=== PATIENT | female | born 1995 | race African-American/Black ===

== ENCOUNTER 2017-02-02 15:32 | Emergency (ER) | payer OTHER ==
[~2017-02-02] VITALS: Ht 165.1 cm; Wt 108.9 kg
[2017-02-02] MEDS ORDERED: NKM (15:37)
[2017-02-02] MEDS ORDERED: Tetanus/Diptheria/Pertussis Vaccine 0.5ml Syr IM ONE (16:00)
--- NOTE | 2017-02-02 16:01 | Emergency Room Report ---
History of Present Illness General Chief Complaint: Head, Face, Neck Trauma Source: Patient Present Illness HPI 21-year-old female no significant past medical history presenting with fall. Patient [place] the park, [place], landed on rocks, sustained laceration to right forehead, LOC for a few seconds, patient can recall event. Patient had an episode of nausea and vomiting prior to coming to the emergency room. Tetanus is not up-to-date. Denies injury to any other part of body aside from head Allergies: Coded Allergies: COCONUT (Verified Allergy, Unknown, 02/02/17) Patient History Past Medical History: see triage record Past Surgical History: none Pertinent Family History: none Last Menstrual Period: Two weeks ago Now: No Reviewed Nursing Documentation: PMH: Agreed, PSxH: Agreed Nursing Documentation-PMH Past Medical History: No Stated History Review of Systems All Other Systems: negative except mentioned in HPI Physical Exam Vital Signs Date Time Temp Pulse Resp B/P (MAP) Pulse Ox O2 Delivery O2 Flow Rate FiO2 02/02/17 15:33 98.4 90 18 133/87 100 Room Air Sp02 EP Interpretation: reviewed, normal General Appearance: alert, GCS 15, non-toxic, mild distress Head: normocephalic - Right forehead with circular 2 cm deep laceration, no active bleeding, surrounding nonbloody hematoma Eyes: bilateral eye normal inspection, bilateral eye PERRL, bilateral eye EOMI ENT: normal ENT inspection, normal pharynx, normal voice, moist mucus membranes Neck: normal inspection, full range of motion, supple, no bony tend Respiratory: normal inspection, lungs clear, normal breath sounds, no respiratory distress, no retraction, no wheezing, speaking full sentences, chest symmetrical Cardiovascular #1: normal inspection, regular rate, rhythm, normal capillary refill Cardiovascular #2: 2+ radial (R), 2+ radial (L) Gastrointestinal: normal inspection, non tender, soft, non-distended, no guarding Musculoskeletal: normal inspection, back normal, normal range of motion, non- tender Neurologic: normal inspection, alert, oriented x3, responsive, motor strength/ tone normal, sensory intact, normal gait, speech normal Psychiatric: normal inspection, judgement/insight normal, memory normal Skin: normal inspection, normal color, no rash, warm/dry, well hydrated, normal turgor Medical Decision Making Diagnostic Impression: Primary Impression: Forehead laceration Additional Impression: Closed head injury ER Course 21-year-old female, fell, LOC, nausea vomiting DDX: Laceration, rule out intracranial hemorrhage Plan: CT head Laceration repair Tetanus ER course: Laceration repaired, bacitracin with sterile dressing applied. Tdap given. Disposition: Patient will be discharged home. Strict return precautions discussed with patient such as fever, chills, increasing bleeding to site, purulent drainage, rapid swelling or redness to area. Patient verbalizes understanding. Patient sis informed of inevitable scar that will result from laceration despite repair. Pt instructed to avoid sun exposure to decrease the appearance of scar. Patient instructed to return to ED or their primary care doctor in 5-7 days for removal of sutures. Patient agrees with plan. Please note that this Emergency Department Report was dictated using [employer] technology software, occasionally this can lead to erroneous entry secondary to interpretation by the dictation equipment CT/MRI/US Diagnostic Results CT/MRI/US Diagnostic Results : Imaging Test Ordered: Ct Head Impression Impression: Negative for acute intracranial bleed or mass effect Left maxillary sinus air-fluid level, probably on the basis of acute sinusitis, less likely on the basis of acute trauma. Consider dedicated facial CT if there is clinical suspicion of the latter. Last Vital Signs Date Time Temp Pulse Resp B/P (MAP) Pulse Ox O2 Delivery O2 Flow Rate FiO2 02/02/17 15:33 98.4 90 18 133/87 100 Room Air Disposition: HOME, SELF-CARE Condition: Improved Patient Instructions: Facial Laceration Additional Instructions: PLEASE COME BACK TO ED OR YOUR PCP TO REMOVE SUTURES IN 5-7 DAYS Sofy Hawkins M.D. Feb 02, 2017 16:01
--- NOTE | 2017-02-02 16:51 | Diagnostic Imaging Report ---
Indication: AMS head trauma, status post fall, vomiting Technique: Continuous helical CT scanning of the head was performed without intravenous contrast material. Axial and coronal 5 mm sections were generated. Radiation dose was minimized using automated exposure control Dose: Total Dose Length Product - DLP [address] Dose Index - CTDIvol(s) 70.38 mGy. Comparison: None Findings: The ventricular system is normal in size and configuration. There is no shift of midline structures. No abnormal extra-axial fluid collections are noted. There is no evidence of intracerebral bleeding. No other abnormal high or low density areas are noted within the brain. There is left maxillary sinus air-fluid level as well as mucosal thickening. The lens of the left optic globe is not definitely visualized. Intact calvarium. There is no evidence of significant extracranial soft tissue injury Impression: Negative for acute intracranial bleed or mass effect Left maxillary sinus air-fluid level, probably on the basis of acute sinusitis, less likely on the basis of acute trauma. Consider dedicated facial CT if there is clinical suspicion of the latter. The CT scanner at [facility] is accredited by the [employer] and the scans are performed using protocols designed to limit radiation exposure to as low as reasonably achievable to attain images of sufficient resolution adequate for diagnostic evaluation.
[2017-02-02] MEDS ORDERED: Bacitracin Oint UD TOPIC ONE (17:45)
[2017-02-02 18:23] VITALS: BP 123/80
== END 2017-02-02 18:25 | disposition home or self-care (01) ==
LOC: EMR 16:20
DX: S01.81XA Laceration without foreign body of other part of head, initial encounter (principal); S09.8XXA Other specified injuries of head, initial encounter; W19.XXXA Unspecified fall, initial encounter; Y92.830 Public park as the place of occurrence of the external cause; Z23 Encounter for immunization
CPT/HCPCS: 70450; 90471; 90715; 99284